=== PATIENT | male | born 1965 | race Caucasian/White ===

== ENCOUNTER → 2016-10-21 | Outpatient (CLI) | payer BC ==
[2016-10-21 08:57] LABS: Bilirubin, Delta 0.1 mg/dL (0.0-0.2); Total Bilirubin 0.5 mg/dL (0.2-1.3); Total Protein 7.5 g/dL (6.3-8.2)
== END | disposition home or self-care (01) ==
LOC: LABWHC1 07:54
PROVIDERS: ATTEND Internal Medicine Cardiovascular Disease
DX: E78.00 Pure hypercholesterolemia, unspecified (principal); I10 Essential (primary) hypertension; I25.10 Atherosclerotic heart disease of native coronary artery without angina pectoris; I47.2 Ventricular tachycardia; Z95.5 Presence of coronary angioplasty implant and graft; R09.89 Other specified symptoms and signs involving the circulatory and respiratory systems
CPT/HCPCS: 36415; 80061; 80076

== ENCOUNTER → 2019-12-06 | Outpatient (CLI) | payer BC ==
[2019-12-06 15:14] LABS: ALT 23 U/L (10-49); AST 26 U/L (14-35); Albumin/Globulin Ratio 1.67 (1.60-3.17); Alkaline Phosphatase 77 U/L (41-126); Bilirubin, Conjugated <0.20 mg/dL (0.20-0.40); Chol/HDL Ratio 4.47; Cholesterol 170 mg/dL (0-200); Globulin 2.7 g/dL (1.6-3.3); LDL Cholesterol,Calculated 94.8 mg/dL (0.0-131.0); Total Bilirubin 0.4 mg/dL (0.2-1.2); Total Protein 7.2 g/dL (6.2-8.2)
== END | disposition home or self-care (01) ==
LOC: LABWHC1 08:30
PROVIDERS: ATTEND Internal Medicine Cardiovascular Disease
DX: I25.10 Atherosclerotic heart disease of native coronary artery without angina pectoris (principal); Z95.5 Presence of coronary angioplasty implant and graft; Z82.49 Family history of ischemic heart disease and other diseases of the circulatory system; I47.2 Ventricular tachycardia; I10 Essential (primary) hypertension; E78.00 Pure hypercholesterolemia, unspecified
CPT/HCPCS: 36415; 80061; 80076

== ENCOUNTER → 2022-04-23 | Outpatient (CLI) | payer BC ==
[2022-04-23 11:09] LABS: ALT 22 U/L (10-49); AST 24 U/L (14-35); Albumin 4.5 g/dL (3.8-4.9); Albumin/Globulin Ratio 1.47 (1.60-3.17); Alkaline Phosphatase 65 U/L (41-126); Bilirubin, Conjugated <0.20 mg/dL (0.20-0.40); Chol/HDL Ratio 4.53 Ratio; Globulin 3.1 g/dL (1.6-3.3); LDL Cholesterol,Calculated 78.8 mg/dL (0.0-131.0); Total Protein 7.6 g/dL (6.2-8.2)
== END | disposition home or self-care (01) ==
LOC: LABWHC1 08:11
PROVIDERS: ATTEND Internal Medicine Cardiovascular Disease
DX: I10 Essential (primary) hypertension (principal); I25.10 Atherosclerotic heart disease of native coronary artery without angina pectoris; E78.00 Pure hypercholesterolemia, unspecified; R06.02 Shortness of breath; R94.30 Abnormal result of cardiovascular function study, unspecified; Z95.5 Presence of coronary angioplasty implant and graft
CPT/HCPCS: 36415; 80061; 80076